=== PATIENT | male | born 1950 | race Caucasian/White ===

== ENCOUNTER 2017-01-13 01:47 | Emergency (ER) | payer BC ==
[~2017-01-13] VITALS: Ht 167.6 cm; Wt 63.5 kg
--- NOTE | 2017-01-13 02:28 | Emergency Room Report ---
History of Present Illness General Chief Complaint: Diarrhea Source: Patient Present Illness HPI Patient presents with diarrhea - moving bowels 10 times today. Denies blood. Now has hemorrhoids and clear discharge from rectum. Hemorrhoids in the past treated with "injections". Never with colonoscopy. No fevers, abdominal pain, vomiting, dysuria. No strange foods or foreign travel. No contacts. Anxious. Allergies: Coded Allergies: LATEX (Verified Allergy, Unknown, 01/13/17) Patient History Past Medical History: see triage record Social History Narrative with daughter Reviewed Nursing Documentation: PMH: Agreed, PSxH: Agreed Nursing Documentation-PMH Past Medical History: No Stated History Review of Systems All Other Systems: negative except mentioned in HPI Physical Exam Vital Signs Date Time Temp Pulse Resp B/P Pulse Ox O2 Delivery O2 Flow Rate FiO2 01/13/17 01:56 98.1 77 16 155/88 100 Room Air Sp02 EP Interpretation: reviewed, normal General Appearance: well appearing, no apparent distress Head: normocephalic, atraumatic Eyes: bilateral eye PERRL, bilateral eye normal inspection ENT: hearing grossly normal, normal voice Neck: full range of motion, supple Respiratory: no respiratory distress, speaking full sentences Rectal: hemorrhoids - no blood Musculoskeletal: no calf tenderness Neurologic: alert, normal gait Psychiatric: anxious Skin: no rash Medical Decision Making Diagnostic Impression: Primary Impression: Hemorrhoids Qualified Codes: K64.3 - Fourth degree hemorrhoids ER Course Patient with diarrhea and clear d/c from rectum and hemorrhoids. Diagnosis is clinical. Consideration for other colonic pathology though no acute studies indicated at this time. Needs to have colonoscopy. Focus on treatment of hemorrhoids. Patient understands need for colonoscopy and also referral to parts cataloger or surgeon. Patient stable for outpatient observation and treatment. Last Vital Signs Date Time Temp Pulse Resp B/P Pulse Ox O2 Delivery O2 Flow Rate FiO2 01/13/17 02:49 /01/13/17 02:44 98.1 16 100 Room Air 01/13/17 01:56 77 Status: improved Disposition: HOME, SELF-CARE Condition: Improved Scripts Hydrocortisone Acetate* (ANUSOL-HC*) 25 Mg Supp.rect 1 SUPP RECTAL TWICE A DAY for 7 Days, SUPP 1 Refill Prov: Carlos A Ulloa M.D. 01/13/17 Benzocaine (AMERICAINE) 28 Gm Oint...g. 1 APPLIC TP Q6HR Y for For Pain, #28 GM 1 Refill Prov: Carlos A Ulloa M.D. 01/13/17 Carlos A Ulloa M.D. Jan 13, 2017 02:28
[2017-01-13] MEDS ORDERED: AMERICAINE28 G1 TP (02:32)
[2017-01-13] MEDS ORDERED: ANUSOL-HC25 MG RECTAL (02:32)
[2017-01-13 02:44] VITALS: BP 155/88
[2017-01-13 02:49] VITALS: BP 1/1
== END 2017-01-13 02:45 | disposition home or self-care (01) ==
LOC: EMR 02:30
DX: K64.3 Fourth degree hemorrhoids (principal); Z91.040 Latex allergy status
CPT/HCPCS: 99284

== ENCOUNTER 2019-04-17 17:37 | Emergency (ER) | payer MEDICARE, BC ==
[~2019-04-17] VITALS: Ht 167.6 cm; Wt 61.2 kg
[~2019-04-17 17:37] MED LIST: AMERICAINE28 G1 TP; ANUSOL-HC25 MG RECTAL
[2019-04-17 17:44] VITALS: BP 132/84
--- NOTE | 2019-04-17 17:45 | NUR ---
ED Nurse Note: Pt came in from home due to bee sting @1700 today, swelling noted on dorsal lower head. Pain 2/10 alin. AOx4, VSS. Will cont to monitor.
--- NOTE | 2019-04-17 18:29 | Emergency Room Report ---
History of Present Illness General Chief Complaint: Animal Bite Source: Patient Present Illness HPI 68-year-old male presents to the emergency department complaining of 2 out of 10 severity pain, tenderness/burning sensation to several bee stings that he received prior to arrival on the back of his head. Patient states he had an acute onset after placing a hat that he found in the garage on his head. Patient states that when he removed the hat he visibly saw to bees fly out from under the hat. Denies previous hx of bee sting allergy or anaphylaxis. Patient states he is not up-to-date with his tetanus vaccination. Pt. denies fevers, chills or swollen tender lymph nodes. Denies lesions/rashes elsewhere on the body. Denies new medications or body washes or creams. Denies swelling of the lips, tongue , throat or airway. Denies wheezing, or shortness of breath. Denies recent travel, recent illness or ill contacts. denies blisters, oral lesions, or sloughing of the skin Allergies: Coded Allergies: LATEX (Verified Allergy, Unknown, 01/13/17) Patient History Past Medical History: see triage record Past Surgical History: none Pertinent Family History: none Reviewed Nursing Documentation: PMH: Agreed; PSxH: Agreed Nursing Documentation-PMH Past Medical History: No Stated History Review of Systems All Other Systems: negative except mentioned in HPI Physical Exam Vital Signs Date Time Temp Pulse Resp B/P (MAP) Pulse Ox O2 Delivery O2 Flow Rate FiO2 04/17/19 17:40 98.1 60 18 132/84 (100) 95 Room Air Sp02 EP Interpretation: reviewed, normal General Appearance: no apparent distress, alert, GCS 15, non-toxic Head: normocephalic, atraumatic Eyes: bilateral eye normal inspection, bilateral eye PERRL ENT: hearing grossly normal, no angioedema, normal voice Neck: full range of motion, other - no stridor Respiratory: chest non-tender, lungs clear, normal breath sounds, no wheezing, speaking full sentences Cardiovascular #1: regular rate, rhythm, no edema Musculoskeletal: back normal, gait/station normal, normal range of motion, non- tender Neurologic: alert, oriented x3, responsive, motor strength/tone normal, sensory intact, speech normal, grossly normal Psychiatric: judgement/insight normal Skin: other - two discrete erythematous papules with surrounding erythema and swelling to the posterior scalp, no d/c , blisters or vessicles. Lymphatic: no adenopathy Medical Decision Making PA Attestation Dr. Ulloa is my supervising Physician whom patient management has been discussed with. Diagnostic Impression: Primary Impression: Insect bites and stings Qualified Codes: W57.XXXA - Bitten or stung by nonvenomous insect and other nonvenomous arthropods, initial encounter ER Course Pt. presents to the ED c/o Itching, swelling, and erythema of posterior scalp Ddx considered but are not limited to cellulitis, scabies, insect bites, tic bites, spider bites, contact dermatitis, Drug reaction, allergic reaction, fungal infection, lice. Vital signs: are WNL, pt. is afebrile H&PE are most consistent with multiple insect bites of the posterior scalp with local reaction ORDERS: none required at this time, the diagnosis is clinical ED INTERVENTIONS: -TDAP DISCHARGE: At this time pt. is stable for d/c to home. Will provide printed patient care instructions, and any necessary prescriptions. Care plan and follow up instructions have been discussed with the patient prior to discharge. Last Vital Signs Date Time Temp Pulse Resp B/P (MAP) Pulse Ox O2 Delivery O2 Flow Rate FiO2 04/17/19 17:44 98.1 98 20 132/84 95 Room Air Disposition: HOME, SELF-CARE Condition: Stable Scripts Bacitracin/Polymyxin B Sulfate (BACITRACIN-POLYMYXIN OINTMENT) 28.35 Gm Oint...g. 1 APPLIC TP BID, #28 GM Prov: Calli Pearson 04/17/19 Cephalexin* (KEFLEX*) 500 Mg Capsule 500 MG ORAL EVERY 12 HOURS for 7 Days, #14 CAP 0 Refills Prov: Calli Pearson 04/17/19 Patient Instructions: Bee, Wasp, or Hornet Sting, Insect Bite, [id number] Additional Instructions: Take medications as directed. Follow up with a Primary Care Provider in 3-5 days, even if your symptoms have resolved. --Please review list of primary care clinics, if you do not already have a primary care provider Return sooner to ED if new symptoms occur, or current symptoms become worse. - Please note that this Emergency Department Report was dictated using [employer] mixer helper technology software, occasionally this can lead to erroneous entry secondary to interpretation by the dictation equipment. Calli Pearson Apr 17, 2019 18:29
[2019-04-17] MEDS ORDERED: Tetanus/Diptheria/Pertussis IM ONE (18:30)
[2019-04-17] MEDS ORDERED: BACITRACIN-P28.35 GM TP (18:30)
[2019-04-17] MEDS ORDERED: CEPHALEXIN500 MG ORAL (18:30)
[2019-04-17 18:38] VITALS: BP 129/79
--- NOTE | 2019-04-17 18:38 | NUR ---
ER DISCHARGE NOTE: Patient is cleared to be discharged per ERMD, pt is aox4, on room air, with stable vital signs. pt was given dc and prescription instructions, pt was able to verbalize understanding, pt id band removed. pt is able to ambulate with steady gait. pt took all belongings.
== END 2019-04-17 18:38 | disposition home or self-care (01) ==
LOC: EMR 18:14
DX: T63.441A Toxic effect of venom of bees, accidental (unintentional), initial encounter (principal); W57.XXXA Bitten or stung by nonvenomous insect and other nonvenomous arthropods, initial encounter; Z23 Encounter for immunization; Z91.040 Latex allergy status
CPT/HCPCS: 90471; 90715; 99283